=== PATIENT | female | born 1950 | race Caucasian/White ===

== ENCOUNTER → 2024-02-06 12:38 | Outpatient (REF) | payer OTHER, SELFPAY | LOC: WDC 12:38 | PROVIDERS: ATTENDING PHYSICIAN Family Medicine | DX: Z12.31 Encounter for screening mammogram for malignant neoplasm of breast (principal) | CPT/HCPCS: 77063; 77067 ==

== ENCOUNTER → 2024-02-23 08:01 | Outpatient (REF) | payer OTHER, SELFPAY | LOC: MRI 3T 08:01 | PROVIDERS: ATTENDING PHYSICIAN Physician Assistant Surgical; FAMILY PHYSICIAN Family Medicine | DX: M25.562 Pain in left knee (principal) | CPT/HCPCS: 73721 ==

== ENCOUNTER 2024-04-16 06:32 | Day surgery (SDC) | payer OTHER, SELFPAY ==
[2024-04-05 10:41] VITALS: BMI 28.1
[2024-04-05 10:45] LABS: Hematocrit 48.3 % (37.0-47.0); Hemoglobin 16.4 g/dL (12.0-16.0); Mean Corpuscular Volume 100.2 fL (81.0-99.0); Platelet Count 220 10^3/uL (130-400); Red Blood Cell Count 4.82 10^6/uL (4.20-5.40); Red Cell Dist. Width 12.8 % (11.5-14.5); White Blood Cell Count 6.1 10^3/uL (4.8-10.8)
[2024-04-05 11:20] LABS: Blood Urea Nitrogen 14 mg/dl (7-17); Calcium 9.4 mg/dl (8.4-10.2); Carbon Dioxide 28 mmol/L (22-30); Chloride 104 mmol/L (98-107); Estimated Creatinine Clearance 40 ml/min; Glucose 96 mg/dl (70-99); Potassium 4.4 mmol/L (3.5-5.1); eGFR 47.21
[2024-04-05 11:27] LABS: Sodium 145 mmol/L (135-145)
--- NOTE | 2024-04-08 07:46 | PTCARENOTE ---
Patients 04/05 ECG abnormal- reviewed by Dr. Marroquin- no additional intervention required
[2024-04-16 09:01] VITALS: BP 173/92
[2024-04-16] MEDS: CELEBREX 200 MG PO (09:09)
[2024-04-16] MEDS: TYLENOL 1000 MG PO (09:09)
[2024-04-16 09:22] VITALS: BMI 28.1
[2024-04-16 11:49] VITALS: BP 115/59; BP 173/92
[2024-04-16 12:00] VITALS: BP 115/64
[2024-04-16 12:15] VITALS: BP 134/70
[2024-04-16 12:30] VITALS: BP 154/82
[2024-04-16 13:00] VITALS: BP 125/81
== END 2024-04-16 13:29 | disposition home or self-care (01) ==
LOC: SDS 06:32
PROVIDERS: ATTENDING PHYSICIAN Specialist; FAMILY PHYSICIAN Family Medicine
DX: S83.242A Other tear of medial meniscus, current injury, left knee, initial encounter (principal); M25.562 Pain in left knee; M17.12 Unilateral primary osteoarthritis, left knee; X58.XXXA Exposure to other specified factors, initial encounter
CPT/HCPCS: 29881; 36415; 80048; 85027; 93005

== ENCOUNTER → 2024-11-11 13:48 | Outpatient (REF) | payer OTHER, SELFPAY | LOC: MRI 3T 13:48 | PROVIDERS: FAMILY PHYSICIAN Family Medicine | DX: G31.84 Mild cognitive impairment of uncertain or unknown etiology (principal) | CPT/HCPCS: 70551 ==

== ENCOUNTER 2025-02-04 06:24 | Day surgery (SDC) | payer OTHER, SELFPAY | END 2025-02-04 14:37 | disposition home or self-care (01) | LOC: GI 06:24 | PROVIDERS: ATTENDING PHYSICIAN Internal Medicine Gastroenterology | DX: Z12.11 Encounter for screening for malignant neoplasm of colon (principal); D12.2 Benign neoplasm of ascending colon; K57.30 Diverticulosis of large intestine without perforation or abscess without bleeding; K62.1 Rectal polyp; R19.5 Other fecal abnormalities; K64.8 Other hemorrhoids | CPT/HCPCS: 45385; 88305 ==